=== PATIENT | male | born 1980 | race Two or more races ===

== ENCOUNTER 2025-01-04 08:43 | Emergency (ER) | payer BC, OTHER ==
[~2025-01-04] VITALS: Ht 177.8 cm; Wt 108.2 kg
--- NOTE | 2025-01-04 08:57 | ED.PDOC ---
History of Present Illness HPI Comments 44-year-old male with no reported PMHx presents with a chief complaint of laceration to right hand. Patient states that around 0845 this morning he accidentally smashed his right hand underneath a metal pipe. Patient now has a laceration to his 2nd and 3rd digits on his right hand. Chief Complaint: Laceration Time Seen by MD: 08:55 Reviewed Notes: Medications, Allergies Allergies: Coded Allergies: NO KNOWN ALLERGIES (Unverified , 01/04/25) Information Source: Patient Mode of Arrival: Ambulatory Severity: Moderate Timing: Minutes Duration: Since onset Prehospital treatment: None Past Medical History PAST MEDICAL HISTORY: Denies Surgical History: Denies all surgeries Family History Family History: Reviewed,noncontributory to illness Social History Smoker: Non-Smoker Alcohol: Denies ETOH Use Drugs: Denies Drug Use Lives In: Home Constitutional: denies: chills, diaphoresis, fatigue, fever, malaise, sweats, weakness, others EENTM: denies: blurred vision, double vision, ear bleeding, ear discharge, ear drainage, ear pain, ear ringing, eye pain, eye redness, hearing loss, mouth pain, mouth swelling, nasal discharge, nose bleeding, nose congestion, nose pain, photophobia, tearing, throat pain, throat swelling, voice changes, others Respiratory: denies: cough, hemoptysis, orthopnea, SOB at rest, shortness of breath, SOB with excertion, stridor, wheezing, others Cardiovascular: denies: chest pain, dizzy spells, diaphoresis, Dyspnea on exertion, edema, irregular heart beat, left arm pain, lightheadedness, palpitations, PND, syncope, others Gastrointestinal: denies: abdomen distended, abdominal pain, blood streaked bowels, constipated, diarrhea, dysphagia, difficulty swallowing, hematemesis, melena, nausea, poor appetite, poor fluid intake, rectal bleeding, rectal pain, vomiting, others Genitourinary: denies: burning, dysuria, flank pain, frequency, hematuria, incontinence, penile discharge, penile sore, pain, testicle pain, testicle swelling, urgency, others Neurological: denies: dizziness, fainting, headache, left sided numbness, left sided weakness, numbness, paresthesia, pre-existing deficit, right sided numbness, right sided weakness, seizure, speech problems, tingling, tremors, weakness, others Musculoskeletal: denies: back pain, gout, joint pain, joint swelling, muscle pain, muscle stiffness, neck pain, others Integumetry: reports: laceration; denies: bruises, change in color, change in hair/nails, dryness, lesions, lumps, rash, wounds, others Allergic/Immunocompromised: denies: Difficulty Healing, Frequent Infections, Hives, Itching, others Hematologic/Lymphatic: denies: anemia, blood clots, easy bleeding, easy bruising, swollen glands, others Endocrine: denies: excessive hunger, excessive sweating, excessive thirst, excessive urination, flushing, intolerance to cold, intolerance to heat, unexplained weight gain, unexplained weight loss, others Psychiatric: denies: anxiety, bipolar disorder, depression, hopeless, panic disorder, schizophrenia, sleepless, suicidal, others All Other Systems: Reviewed and Negative Physical Exam General Appearance: Moderate Distress, Normal HEENT: Normal ENT Inspection, Pharynx Normal, TMs Normal Neck: Full Range of Motion, Non-Tender, Normal, Normal Inspection Respiratory: Chest Non-Tender, Lungs Clear, No Accessory Muscle Use, No Respiratory Distress, Normal Breath Sounds Cardiovascular: No Edema, No JVD, No Murmur, No Gallop, Normal Peripheral Pulses, Regular Rate/Rhythm Breast Exam: Deferred Gastrointestinal: No Organomegaly, Non Tender, No Pulsatile Mass, Normal Bowel Sounds, Soft Genitalia: Deferred Pelvic: Deferred Rectal: Deferred Extremities: No calf tenderness, Normal capillary refill, Normal inspection, Normal range of motion, Non-tender, No pedal edema Musculoskeletal : Apperance: Normal Neurologic: Alert, weblogic developer II-XII nml as Tested, No Motor Deficits, Normal Affect, Normal Mood, No Sensory Deficits Cerebellar Function: Normal Reflexes: Normal Skin: Dry, Lacerations (Right middle finger ring finger), Normal Color, Warm Peripheral Pulses: 3+ Radial (R), 3+ Radial (L) Lymphatic: No Adenopathy Was a procedure done? Was a procedure done?: No Differential Dx Considerations may include: Laceration X-Ray, Labs, Meds, VS Vital Signs Date Time Temp Pulse Resp B/P (MAP) Pulse Ox O2 Delivery O2 Flow Rate FiO2 01/04/25 08:47 98.2 82 18 157/101 (119) 97 98.2 Patient alert. Maggy injury to the right middle finger ring finger. Vitals stable. Answering questions. He does not want tetanus. States that it was wood. Saturation pristine on room air. Cleaned the wound. Sutured. X-ray of the hand. Was given prescription of amoxicillin antibiotic. Was told to follow up with his primary care physician. Was told to come back if there is any problem. Time of 1ST Reevaluation: :25 Reevaluation 1ST: Unchanged Patient Education/Counseling: Diagnosis, Treatment, Need For Follow Up Family Education/Counseling: No Family Present SEPSIS Sepsis Screen Physician Orders R Hand 2 View Xray (01/04/25 09:17) Vital Signs Date Time Temp Pulse Resp B/P (MAP) Pulse Ox O2 Delivery O2 Flow Rate FiO2 01/04/25 08:47 98.2 82 18 157/101 (119) 97 98.2 Departure 1 Departure Time of Disposition: 09:26 Impression: Primary Impression: Laceration Additional Impression: Finger fracture Qualified Codes: S62.602A - Fracture of unspecified phalanx of right middle finger, initial encounter for closed fracture Disposition: 01 HOME / SELF CARE / HOMELESS Condition: Good e-Prescriptions Clindamycin HCl (Clindamycin Hydrochloride) 300 Mg Cap 300 MG PO TID for 7 Days, #21 CAP Prov: ALANA LAI MD 01/04/25 Amoxicillin Trihydrate (Amoxicillin) 500 Mg Tab 1 TAB PO TID for 10 Days, #30 TAB Prov: ALANA LAI MD 01/04/25 Discharged With: Self Critical Care Note Critical Care Time?: No Stability Stability form required: No Heart Score Heart Score: Heart Score Response (Comments) Value History N/A 0 EKG N/A 0 Age N/A 0 Risk Factors N/A 0 Troponin N/A 0 Total 0 I personally scribed for ALANA LAI MD ([email or web address]) on 01/04/25 at 08:57. Electronically submitted by Travis Dia ([email or web address]). ALANA LAI MD Jan 04, 2025 08:57
[2025-01-04] MEDS: LIDOCAINE 1% HCL (LOCAL ANESTH.) INJ 20ML MDV ID ONE (09:16)
--- NOTE | 2025-01-04 10:00 | DVH ---
XY R HAND 2 VIEW XRAY, INDICATION: crush TECHNICAL DATA: Frontal, and lateral views were obtained of the right hand. COMPARISON: None FINDINGS: Fracture at the 3rd digit distal phalanx tuft. Joint spaces are maintained. Alignment is anatomic. So ft tissues are within normal limits. Foreign body near the 5th MCP. IMPRESSION: Fracture at the 3rd digit distal phalanx tuft.
[2025-01-04] MEDS ORDERED: AMOX500T3 PO (10:10)
[2025-01-04] MEDS ORDERED: CLIN-203 PO (10:10)
[2025-01-04 10:23] VITALS: BP 141/96; PULSE 68; RESP 16; TEMP 98; O2SAT 96
== END 2025-01-04 10:26 | disposition home or self-care (01) ==
LOC: ER 08:43
DX: S62.602A Fracture of unspecified phalanx of right middle finger, initial encounter for closed fracture (principal); S61.411A Laceration without foreign body of right hand, initial encounter; X58.XXXA Exposure to other specified factors, initial encounter; Y93.89 Activity, other specified; Y92.89 Other specified places as the place of occurrence of the external cause; Y99.8 Other external cause status
CPT/HCPCS: 12001; 29130; 73120; 99283; J2003